=== PATIENT | male | born 1970 | race Caucasian/White ===

== ENCOUNTER 2022-09-07 08:58 | Outpatient (CLI) | payer OTHER, SELFPAY ==
--- NOTE | 2022-09-07 | EST_ITS ---
Patient Info Name: Kimani Dickson Age: 52 years : 1970 Gender: Male Ht: 73 in Wt: 221 lbs BSA: 2.29 m2 HR: 50 bpm BP: 115 / 76 mmHg Heart Rhythm: Sinus Rhythm Exam Date: 09/07/2022 9:55 AM Exam Location: [facility] Patient Status: Outpatient Admit Date: 09/07/2022 Staff Ordering Physician: Peggy, Daphnie Montano NP Attending Provider: PeggyDaphnie NP Exercise Technologist: Denise Teague CT Nurse: alexandra pettit Exam Type: CA stress mela w NM Study Info Indications R07.9 - Chest pain, unspecified A regadenoson stress test was performed. Summary 1. Sinus bradycardia nonspecific T-wave abnormality. 2. No additional ST or T changes noted following Lexiscan injection. 3. Clinically and electrocardiographically uneventful Lexiscan stress test. 4. Myocardial perfusion imaging study to be reported by Radiology. Protocol: Lexiscan Stress ECG Details Stage: REST Duration (min): 0 min : 58 sec HR (bpm): 50 SBP (mmHg): 115 DBP (mmHg): 76 Stage: REST Duration (min): 13 min : 5 sec HR (bpm): 57 SBP (mmHg): 115 DBP (mmHg): 76 Stage: STAGE 1 Duration (min): 1 min : 0 sec HR (bpm): 67 SBP (mmHg): 115 DBP (mmHg): 76 Stage: RECOVERY Duration (min): 1 min : 0 sec HR (bpm): 51 SBP (mmHg): 115 DBP (mmHg): 76 Stage: RECOVERY Duration (min): 2 min : 0 sec HR (bpm): 63 SBP (mmHg): 200 DBP (mmHg): 48 Stage: RECOVERY Duration (min): 3 min : 0 sec HR (bpm): 58 SBP (mmHg): 200 DBP (mmHg): 48 Stage: RECOVERY Duration (min): 4 min : 0 sec HR (bpm): 58 SBP (mmHg): 107 DBP (mmHg): 48 Stage: RECOVERY Duration (min): 5 min : 0 sec HR (bpm): 60 SBP (mmHg): 96 DBP (mmHg): 50 Stage: RECOVERY Duration (min): 5 min : 3 sec HR (bpm): 60 SBP (mmHg): 96 DBP (mmHg): 50 Rest HR: 57 bpm Peak HR: 67 bpm Rest Sys BP: 115 mmHg Peak Sys BP: 200 mmHg Max Pred HR: 170 bpm % Max Pred HR: 39 % Target HR: 145 bpm Max RPP: 13,400 bpm*mmHg Termination Reason: Completed protocol Cardiac Symptoms: Shortness of breath Total Time: 1 min : 0 sec Rest Christine BP: 76 mmHg Peak Christine BP: 48 mmHg Total Dose: 0.4 mg Resting ECG Sinus bradycardia nonspecific T-wave abnormality. Stress ECG No additional ST or T changes noted following Lexiscan injection. Report Signatures
--- NOTE | ~2022-09-07 | NM_ITS ---
EXAMINATION: NM mela stress w perfusion DATE: 09/07/2022 11:12 INDICATION: Atypical chest pain. TECHNIQUE: Rest images were obtained following intravenous administration of 10.4 mCi Tc99m tetrofosm in (Myoview). The patient was infused intravenously with Lexiscan (regadenoson). Then, 33.0 mCi Tc99m tetrofosmin (Myoview) was administered intravenously, and stress images were obtained. Data was frankie nstructed into short axis and horizontal and vertical long axis SPECT images. Gated SPECT images were also obtained. COMPARISON: None. FINDINGS: There is a large, severe, partially reversible perfusion defect involving left ventricular apex, apical septal segment, mid inferoseptal segment, inferior wall, and mid to basal inferolateral wall, consistent with mixed ischemia and infarct. There is no segmental wall motion abnormality. Lef t ventricular ejection fraction measures 50%. IMPRESSION: 1. Large area of severe mixed ischemia and infarct involving left ventricular apex, apical septal seg ment, mid inferoseptal segment, inferior wall, and mid to basal inferolateral wall. I discussed this result with Erika Xiong. 2. Normal left ventricular ejection fraction measuring 50%. Reviewed, dictated and finalized at location A. [facility] [place] IMPRESSION: 1. Large area of severe mixed ischemia and infarct involving left ventricular a pex, apical septal segment, mid inferoseptal segment, inferior wall, and mid to basal inferolateral wall. I discussed this result with Erika Xiong. 2. Normal left ventricular ejection fraction measuring 50%.
== END 2022-09-07 08:59 | disposition home or self-care (01) ==
PROVIDERS: Visit Provider Nurse Practitioner Family
DX: R07.89 Other chest pain (principal)
CPT/HCPCS: 78452; 93017; A9502; J2785

== ENCOUNTER 2022-10-07 13:35 | Outpatient (CLI) | payer OTHER, SELFPAY ==
--- NOTE | 2022-10-07 13:51 | ECHO_ITS ---
Patient Info Name: Kimani Dickson Age: 52 years : 1970 Gender: Male Ht: 74 in Wt: 214 lbs BSA: 2.26 m2 HR: 50 bpm BP: 130 / 80 mmHg Technical Quality: Fair Exam Date: 10/07/2022 2:05 PM Exam Location: [facility] Patient Status: Outpatient Admit Date: 10/07/2022 Staff Ordering Physician: Pako Radford DO Financial Health Counselor: Jamshid Phillips RDCS, RT Attending Provider: Pako Radford DO Referring Physician: Prabhakar TELLEZ; Exam Type: CA echo doppler color flow Study Info Indications I50.9 - Heart failure, unspecified Complete two-dimensional, color flow and Doppler transthoracic echocardiogram is performed. Strain analysis performed. Summary 1. Complete two-dimensional, color flow and Doppler transthoracic echocardiogram is performed. 2. Left ventricular chamber dimension is mildly enlarged. 3. Basal to mid inferoposterior wall is severely hypokinetic. 4. Left ventricular systolic function is moderately reduced, estimated at 35-40%. 5. There is mildly increased left ventricular wall thickness. 6. The left ventricular diastolic function is normal. 7. E/e' 8 is minimally elevated. 8. Global longitudinal strain is mildly abnormal at -16.3%. 9. There is mild aortic valve stenosis based on a peak velocity of 159 cm/s, mean gradient of 6 mmHg, and aortic valve area of 1.8 cm2. 10. The aortic root size at the sinus of Valsalva is moderately dilated at 4.4 cm. Left Ventricle E/e' 8 is minimally elevated. Global longitudinal strain is mildly abnormal at -16.3%. Basal to mid inferoposterior wall is severely hypokinetic. Left ventricular chamber dimension is mildly enlarged. Left ventricular systolic function is moderately reduced, estimated at 35-40%. There is mildly increased left ventricular wall thickness. The left ventricular diastolic function is normal. Right Ventricle Right ventricular systolic function is normal and with normal TAPSE 2.2 cm. Right ventricular chamber dimension is normal. Left Atria Left atrial chamber dimension is normal. Right Atria Right atrial chamber dimension is normal. Aortic Valve The aortic valve is not well visualized. Cannot determine number of aortic valve leaflets. There is mild aortic valve stenosis based on a peak velocity of 159 cm/s, mean gradient of 6 mmHg, and aortic valve area of 1.8 cm2. There is no aortic valve regurgitation. Pulmonic Valve There is no pulmonic regurgitation. Mitral Valve There is no mitral valve stenosis. There is no mitral valve regurgitation. Tricuspid Valve There is no tricuspid valve regurgitation. Pericardium/Pleural There is no pericardial effusion. Inferior Vena Cava Normal inferior vena cava with >50% collapse upon inspiration consistent with normal right atrial pressure, 5 mmHg. Aorta The aortic root size at the sinus of Valsalva is moderately dilated at 4.4 cm. Left Ventricular Outflow Tract Name Value Normal LVOT 2D LVOT Diameter 2.1 cm LVOT Doppler LVOT Peak Gradient 3 mmHg LVOT Mean Gradient 2 mmHg LVOT VTI 21 cm
== END 2022-10-07 13:36 | disposition home or self-care (01) ==
LOC: ANHCARD 13:37
PROVIDERS: PCP Family Medicine; Visit Provider Internal Medicine Cardiovascular Disease
DX: I25.10 Atherosclerotic heart disease of native coronary artery without angina pectoris (principal); R93.1 Abnormal findings on diagnostic imaging of heart and coronary circulation
CPT/HCPCS: 93306

== ENCOUNTER 2022-10-09 11:28 | Observation (INO) | payer OTHER, SELFPAY ==
[2022-10-08 14:28] VITALS: BMI 28.3
[2022-10-09] VITALS (35 sets, daily range): BP systolic 80–142; BP diastolic 51–85; PULSE 41–72; RESP 10–20; TEMP 36.1–37.4; O2SAT 93–100; BMI 28.4
[2022-10-09 09:29] LABS: Basophils Absolute Auto 0.1 K/mm3 (0.0-0.1); Basophils Percent Auto 0.6 % (0.2-1.2); Eosinophils Absolute Auto 0.4 K/mm3 (0-0.3); Hematocrit 48.1 % (42.0-52.0); Hemoglobin 15.7 g/dL (14.0-18.0); Immature Granulocyte Absolute 0.05 K/mm3 (0.00-0.031); Immature Granulocyte Percent A 0.3 % (0-0.5); Lymphocytes Absolute Auto 3.79 K/mm3 (0.9-3.2); Mean Corpuscular HGB Conc 32.6 g/dl (32-36); Mean Corpuscular Hemoglobin 31.3 pg (26-34); Monocytes Absolute Auto 0.9 K/mm3 (0.1-0.6); Monocytes Percent Auto 6.1 % (2.6-8.5); Neutrophils Absolute Auto 9.3 K/mm3 (1.3-6.7); Platelet Count Result 293 k/mm3 (150-375); Red Blood Count 5.01 M/mm3 (4.6-6.20); Red Cell Distribution Width 13.1 % (11.5-14.5); White Blood Count 14.6 K/mm3 (4.5-10.0)
[2022-10-09 09:38] LABS: Anion Gap 5 mmol/L (8-16); Blood Urea Nitrogen 13 mg/dL (9-20); Calcium 8.9 mg/dL (8.4-10.2); Carbon Dioxide 27 mmol/L (22-30); Chloride 105 mmol/L (98-107); Estimated CRCL calculation 126 ml/min; Estimated Glomerular Filt Rate > 60; Glucose 105 mg/dL (65-110); Potassium 3.9 mmol/L (3.4-5.0); Sodium 137 mmol/L (137-145)
--- NOTE | 2022-10-09 10:25 | WPDMODSED ---
Moderate Sedation Note-Pt Data Patient Data Diagnosis: Coronary artery disease with previous MO/PCI Present Complaint: no current complaints abnormal nuclear stress test Procedure to be performed/Plan: left heart catheterization Allergies Allergy/AdvReac Type Severity Reaction Status Date / Time Sulfa (Sulfonamide Allergy Mild SULFA Verified 10/09/22 09:11 Antibiotics) BASED ANTIBIOTIC -N/V PER PT. Home Medications Medication Instructions Recorded Confirmed Type atorvastatin 80 mg tablet 80 mg PO DAILY #30 tabs 09/24/22 10/08/22 Rx cholecalciferol (vitamin D3) 75 75 mcg PO WEEKLY 09/24/22 10/08/22 History mcg (3,000 unit) tablet clopidogrel 75 mg tablet 75 mg PO DAILY #30 tabs 09/24/22 10/08/22 Rx ezetimibe 10 mg tablet 10 mg PO DAILY #30 tabs 09/24/22 10/08/22 Rx icosapent ethyl 1 gram capsule 2 g PO BID #120 caps 09/24/22 10/08/22 Rx (Vascepa) lisinopril 40 mg tablet 40 mg PO DAILY #30 tabs 09/24/22 10/08/22 Rx metoprolol tartrate 25 mg tablet 25 mg PO BID #180 tabs 09/24/22 10/08/22 Rx Current Medications: Active Medications Sodium Chloride (Normal Saline Iv) 500 mls @ 100 mls/hr IV CONT .Q5H APOLLO Sedation/Anesthesia: No previous sedation/anesthesia problems (including family history). [facility] Social History Social History Smoking packs per day: 1 Smoking cigarettes per day: 20.0 Smoking status: Current every day smoker Tobacco type: cigarettes Second hand tobacco smoke exposure: Yes Alcohol intake: never Substance use: never Substance use type: does not use Living arrangements: with family Spiritual care concerns: No Mod Sed Physical Exam Physical Exam Pre Procedural Exam: Normal: Appearance, Throat, Airway, Lungs, Heart Size, Heart Rate, Heart Rhythm, Neuro Exam and Extremities Hours since solid foods: 12 Hours since liquid intake: 12 Mallampati Classification: class II Internal Medicine - PN: Obj Da Vital Signs Vital Signs: Vital Signs - 24 hr 10/09/22 09:19 Temperature 36.4 C L Pulse Rate 52 L Respiratory Rate 14 Blood Pressure 142/84 H Pulse Oximetry 95 Oxygen Delivery Room Air Meds/Results Medications: Active Medications Generic Name Dose Route Start Last Admin Trade Name Les PRN Reason Stop Dose Admin Sodium Chloride 500 mls @ 100 mls/hr 10/09/22 08:30 Normal Saline Iv IV CONT .Q5H APOLLO Labs 10/09/22 09:16 10/09/22 09:16 Labs: Laboratory Results - last 24 hr 10/09/22 10/09/22 09:16 09:16 WBC 14.6 H RBC 5.01 Hgb 15.7 Hct 48.1 MCV 96.0 MCH 31.3 MCHC 32.6 RDW 13.1 Plt Count 293 MPV 10.0 Immature Gran % (Auto) 0.3 Neut % (Auto) 64.0 Lymph % (Auto) 26.0 [place] % (Auto) 6.1 Eos % (Auto) 3.0 Baso % (Auto) 0.6 Lymph # (Auto) 3.79 H [place] # (Auto) 0.9 H Eos # (Auto) 0.4 H Baso # (Auto) 0.1 Abs Immat Gran (auto) 0.05 H Absolute Neuts (auto) 9.3 H Absolute Nucleated RBC 0.0 Nucleated RBC % 0.0 Sodium 137 Potassium 3.9 Chloride 105 Carbon Dioxide 27 Anion Gap 5 L BUN 13 Creatinine 0.70 Estim Creat Clear Calc 126 Estimated GFR > 60 Glucose 105 Calcium 8.9 ASA Classification/Sedation ASA Classification/Sedation ASA Class: II Emergent: No Risks: Risks, benefits and alternatives explained and patient/family accepted plan for sedation. Patient re-evaluated immediately prior to sedation.
--- NOTE | 2022-10-09 11:28 | ECG_ITS ---
Measurements Intervals [place] Rate: 47 P: -1 NH: 163 QRS: -21 QRSD: 116 T: -45 QT: 445 QTc: 397 Interpretive Statements SINUS BRADYCARDIA INTRAVENTRICULAR CONDUCTION DELAY DELAYED PRECORDIAL R/S TRANSITION INFERIOR INFARCT, AGE INDETERMINATE BORDERLINE T WAVE ABNORMALITY- ANTEROLATERAL LEADS BASELINE ARTIFACT- I, II ABNORMAL ECG NO PREVIOUS ECG AVAILABLE FOR COMPARISON Electronically Signed On 10-09-2022 12:06:25 ATHLETE MANAGER by Pako Radford D.O.
--- NOTE | 2022-10-09 11:32 | WPDCARDPROC ---
Cardiac Cath Procedure Note Date of procedure:: 10/09/22 Performing physician:: Ezio Melchor MD Indication:: history of coronary artery disease with previous ME/PCI abnormal nuclear stress test Brief clinical history:: this is a 52-year-old man with history of previous inferior infarction treated approximately 10 years ago at another hospital with PCI. He has been referred for catheterization because of stress testing demonstrating some evidence of nida-infarct ischemia in this segment. He is not reporting any obvious anginal-type chest pain. Procedure Procedure performed:: Left ventriculogram coronary angiogram PTCA to right coronary artery Sedation/Medication given:: fentanyl 50 mg Versed 2 mg case start time 10:40 a.m. case end time 11:22 a.m. sedation provided by Cesilia Solo RN, trained observer Access site:: right femoral artery Estimated blood loss:: 50 cc Procedure note:: patient was brought to the cardiac catheterization lab in the postabsorptive state where the right femoral triangle was prepared and draped in the usual fashion. Anesthesia was provided with 1% lidocaine infiltrated locally. Following this the modified Seldinger technique was used to puncture the femoral artery and placed a 5 Niuean vascular sheath. Left heart catheterization was then carried out using a 5 Niuean angled pigtail catheter to document left-sided hemodynamics and to inject left ventriculography in the 30 degree MCMAHON projection. Following this standard 5 Niuean FL4 catheter was used to engage inject the left coronary artery in multiple projections. A 5 Niuean JR4 catheter was used to engage inject the right coronary artery. Cineangiograms were then reviewed and a piece RCA was recommended and carried out as detailed below. Prior to PCI 5 Niuean sheath was exchanged over a guidewire for a 6 Niuean sheath. The patient was systemically anticoagulated with Angiomax for this intervention. He was taking clopidogrel chronically he was given a loading dose of aspirin as well in the laborer cook house as he has not been taking aspirin. Following intervention the sheath was sutured into position the patient was taken to the holding area for post PCI recovery. Tolerated and uncomplicated there was no evidence of groin hematoma upon leaving the laborer cook house. Findings:: Hemodynamics: Central aortic pressure is 116 over 62 left ventricle 116/5 end-diastolic pressure 16 there is no systolic gradient on pullback across the aortic valve. Left ventricle: The LV is mildly enlarged the posterior segment is akinetic the remainder of the inferior wall is severely hypodynamic the global ejection fraction is about 45% the left main coronary artery is patent. The left anterior descending is a moderate caliber artery proximally and is nicely patent there is mild calcium in the proximal LAD. A very large bifurcating diagonal branch then takes his origin which looks normal. Distal to this very large diagonal branch the LAD itself is angiographically very small but without significant disease. The large diagonal branch is also free of significant disease. The circumflex is a moderate caliber artery giving rise to the marginal branches the circumflex has minimal luminal irregularity but no significant atherosclerotic Stenosis. The right coronary artery is dominant to the posterior circulation it is very large in caliber and has stent material from the proximal segment down to the 3rd portion of the artery. In the 2nd portion of the right coronary artery in the middle of the stented area there is a severe area of 99% in stent restenosis. The area of InStent restenoses is relatively long more than 20 mm of the segment. There is mild left to right collateral filling seen of the RPDA on left coronary injection. The PDA and PL branches are free of significant disease. Intervention: The right coronary artery was engaged using a 6 Niuean JR4
[2022-10-09] MEDS: ACETAMINOPHEN 325 MG TABLET 650 MG PO (12:53)
[2022-10-09] MEDS: SODIUM CHLORIDE 0.9% IV 1,000 ML 125 ML IV CONT (13:52)
--- NOTE | 2022-10-09 15:44 | SUR.PHASEII ---
END PHASE II RECOVERY AT THIS TIME AND CONTINUE CARE UNDER PCS IMU OBS STATUS AFTER LHC W/ PCI. PT. REMAINS IN GUM WORKER 7 OBS STATUS IMU OVERFLOW. SEE PCS FOR FURTHER DOCUMENTATION.
--- NOTE | 2022-10-09 15:45 | ADMGEN ---
This patient, Kimani Dickson, was admitted to IMU Room 212-01. Patient/family oriented to hospital policies and general routines including ID bracelet, bed and alarms, visiting hours, pain management, procedures, bathroom and other care routines, personal items, smoking policy, room service/diet, and visiting hours. Information on how to activate the Rapid Response Team has been discussed. Patient/Family are encouraged to report perceived risks to care and to ask questions if they do not understand what they are told or what they should do.
--- NOTE | 2022-10-09 15:45 | ADMGEN ---
This patient, Kimani Dickson, was admitted to IMU OBS STATUS POST PHASE II RECOVERY AFTER C W/ PCI BY DR. TRIPP. REMAINS IN DESK CLERK 7 AT THIS TIME. SEE PHASE II FOR PREVIOUS DOCUMENTATION. HEMOSTASIS R. GROIN PUNCTURE SITE 1443. BEDREST X 6 HOURS POST HEMOSTASIS UNTIL 2043. REVIEWED BEDREST ACTIVITY RESTRICTIONS W/ PT AND . BOTH HAVE V/U OF ALL. IVF'S RUNNING ORDERED. VSS. WILL CONTINUE TO MONITOR. Patient/family oriented to hospital policies and general routines including ID bracelet, bed and alarms, visiting hours, pain management, procedures, bathroom and other care routines, personal items, smoking policy, room service/diet, and visiting hours. Information on how to activate the Rapid Response Team has been discussed. Patient/Family are encouraged to report perceived risks to care and to ask questions if they do not understand what they are told or what they should do.
[2022-10-09] MEDS: IBUPROFEN 400 MG TABLET 800 MG PO (16:01)
--- NOTE | 2022-10-09 18:00 | PC.NURSE ---
PT HAS ATTEMPTED TO USE URINAL SEVERAL TIMES WITHOUT SUCCESS. HAVE OFFERED PT. PLACEMENT OF URINE LANE CATHETER NUMEROUS TIMES TO MANAGE URINE OUTPUT UNTIL BEDREST COMPLETE. PT. HAS REFUSED PLACEMENT OF LANE EACH TIME OFFERED BY THIS RN. I ONLY PEE TWICE A DAY AT HOME AND I DRINK A LOT. I WILL PEE WHEN MY BEDREST IS DONE. PT. ALSO HAS ONGOING FRONTAL HEADACHE THAT IS ACHY, DULL AND THROBBING DESPITE IVF'S, TYLENOL, IBUPROFEN, ICE PACK TO HEAD, DARK ROOM, LOW STIMULI, CAFFEINE CONTAINING DRINK AND MEAL. HAS HAD SOME RELIEF WITH THESE INTERVENTIONS, BUT STATES, I DRINK 18 CANS OF [place]W A DAY IS TO BRING PT. IN A FEW CANS OF MOUNTAIN DEW.
--- NOTE | 2022-10-09 18:47 | PC.NURSE ---
Called and spoke with receiving nurse Vj on IMU. He got SBAR and asked that we bring the patient to do bedside report.
--- NOTE | 2022-10-09 19:05 | PC.NURSE ---
PT. TRANSFERRED TO IMU 212 VIA BED ON TRANSPORT MONITOR FOR DURATION OF STAY POST [facility] W/ PCI. AT SIDE. ALL PERSONAL BELONGINGS SENT W/ PT. BEDSIDE REPORT GIVEN TO KAYCEE JULIAN PER HIS REQUEST. TELE MONITOR APPLIED. R. GROIN SITE UNCHANGED. DRESSING C/D/I. SITE SOFT, NONTENDER; NO BLEEDING OR HEMATOMA NOTED.
[2022-10-09] MEDS: METOPROLOL TARTRATE 25 MG TABLET PO (20:28)
[2022-10-10] VITALS (9 sets, daily range): BP systolic 103–115; BP diastolic 61–62; PULSE 46–105; RESP 20–22; TEMP 36.1–36.4; O2SAT 94–98
--- NOTE | 2022-10-10 05:11 | ECG_ITS ---
Measurements Intervals [place] Rate: 52 P: -5 AR: 167 QRS: -21 QRSD: 124 T: -31 QT: 436 QTc: 408 Interpretive Statements SINUS BRADYCARDIA INTRAVENTRICULAR CONDUCTION DELAY INFERIOR INFARCT, AGE INDETERMINATE BORDERLINE ST-T WAVE ABNORMALITY- LATERAL LEADS ABNORMAL ECG COMPARED TO ECG 10/09/2022 11:46:51 NO SIGNIFICANT CHANGES Electronically Signed On 10-10-2022 10:08:38 ADULT PROTECTIVE CASEWORKER by Pako Radford D.O.
[2022-10-10] MEDS: EZETIMIBE 10 MG TABLET PO (08:41)
[2022-10-10] MEDS: ASPIRIN 81 MG CHEWABLE TABLET PO (08:41)
[2022-10-10] MEDS: ATORVASTATIN 40 MG TABLET 80 MG PO (08:41)
[2022-10-10] MEDS: CLOPIDOGREL BISULFATE 75 MG TABLET PO (08:41)
[2022-10-10] MEDS: METOPROLOL TARTRATE 25 MG TABLET PO (08:42)
[2022-10-10] MEDS: lisinopriL 20 MG TABLET 40 MG PO (08:42)
[2022-10-10] MEDS: ACETAMINOPHEN 325 MG TABLET 1300 MG PO (10:28)
--- NOTE | 2022-10-10 10:38 | PM.PNCARD ---
Progress Note: A&P Assessment and Plan (1) CAD (coronary artery disease): Code(s): I25.10 - Atherosclerotic heart disease of [place] coronary artery without angina pectoris Status: Acute Assessment and Plan: Stable overnight status post balloon angioplasty to 99% InStent restenosis previously placed RCA stent with excellent result and without complication. Continue dual antiplatelet therapy without interruption including aspirin and clopidogrel. Continue statin, beta-kellen, lisinopril. No complications noted observation overnight. Telemetry without significant ventricular arrhythmias, prolonged pauses or high-grade AV blocks. Post cardiac catheterization / intervention precautions reviewed with the patient and his in detail. All questions answered to their satisfaction. Patient stable for discharge home to follow up with Dr. Radford within 1 month or as directed. advised patient he must not missed a single dose of aspirin or clopidogrel for any of his medications to reduce risk for acute myocardial infarction due to arterial thrombosis which may be life-threatening and or potentially fatal. He understands importance of compliance. (2) Hypertension: Code(s): I10 - Essential (primary) hypertension Status: Acute Assessment and Plan: BP stable. Continue current medical therapy. (3) Dyslipidemia: Code(s): E78.5 - Hyperlipidemia, unspecified Status: Acute Assessment and Plan: Continue atorvastatin 80 mg at bedtime, Zetia 10 mg daily goal LDL less than 70. PCSK9 inhibitor therapy warranted if lipids remain suboptimally controlled on maximally tolerated statin. Defer to Dr. Radford as an outpatient as clinically relevant. (4) Tobacco abuse: Code(s): Z72.0 - Tobacco use Status: Acute Assessment and Plan: smoking cessation critically important. (5) S/P angioplasty: Code(s): Z98.62 - Peripheral vascular angioplasty status Status: Acute Assessment and Plan: Status post balloon angioplasty to 99% InStent restenoses previously placed stent in the RCA. Subjective Date/time seen: Date of service:10/10/22 10:38 Follow-up post PCI to RCA patient complained of headache but no chest pain, shortness of breath, dizziness or palpitations. No new issues overnight. No bleeding. Right groin arterial access site without significant tenderness, hematoma daily or swelling. No fevers. Patient feels well otherwise and would like to be discharged home. No nausea, imbalance, focal weakness, vision changes. Review of Systems Review of Systems: Remainder of the review of systems is otherwise negative aside from that noted in the HPI. All systems reviewed & are unremarkable except as noted in HPI and below Constitutional: Constitutional: Reports as per HPI and Reports no additional constitutional complaints Eyes: Eyes: Reports as per HPI and Reports no additional eye complaints ENT: Reports system reviewed and no additional complaints, except as documented and Reports as per HPI Cardiovascular: Cardiovascular: Reports as per HPI and Reports no additional cardiovascular complaints Respiratory: Respiratory: Reports as per HPI and Reports no additional respiratory complaints Gastrointestinal: Gastrointestinal: Reports as per HPI and Reports no additional gastrointestinal complaints Genitourinary: Genitourinary: Reports no additional male genitourinary complaints and Reports as per HPI Musculoskeletal: Musculoskeletal: Reports no additional musculoskeletal complaints and Reports as per HPI Integumentary/Breasts: Skin/Breast: Reports system reviewed and no additional complaints, except as docu and Reports as per HPI Neurologic: Reports system reviewed and no additional complaints, except as documented and Reports as per HPI Psychiatric: Psychiatric: Reports no additional psychiatric complaints and Reports as per HPI Endocrine: Endocrine: Re
--- NOTE | 2022-10-10 10:50 | PM.DS ---
DS: Admitting Diagnosis Discharge Date 10/10/2022 Admitting Diagnosis Stable Angina Abnormal stress test CAD Hypertension Hyperlipidemia Tobacco abuse DS: Discharge Diagnosis Discharge Diagnosis (1) S/P angioplasty: Code(s): Z98.62 - Peripheral vascular angioplasty status Status: Acute Assessment and Plan: Status post balloon angioplasty to 99% InStent restenoses previously placed stent in the RCA. (2) CAD (coronary artery disease): Code(s): I25.10 - Atherosclerotic heart disease of [place] [facility] [place] coronary artery without angina pectoris Status: Acute Assessment and Plan: Stable overnight status post balloon angioplasty to 99% InStent restenosis previously placed RCA stent with excellent result and without complication. Continue dual antiplatelet therapy without interruption including aspirin and clopidogrel. Continue statin, beta-kellen, lisinopril. No complications noted observation overnight. Telemetry without significant ventricular arrhythmias, prolonged pauses or high-grade AV blocks. Post cardiac catheterization / intervention precautions reviewed with the patient and his in detail. All questions answered to their satisfaction. Patient stable for discharge home to follow up with Dr. Radford within 1 month or as directed. advised patient he must not missed a single dose of aspirin or clopidogrel for any of his medications to reduce risk for acute myocardial infarction due to arterial thrombosis which may be life-threatening and or potentially fatal. He understands importance of compliance. (3) Dyslipidemia: Code(s): E78.5 - Hyperlipidemia, unspecified Status: Acute Assessment and Plan: Continue atorvastatin 80 mg at bedtime, Zetia 10 mg daily goal LDL less than 70. PCSK9 inhibitor therapy warranted if lipids remain suboptimally controlled on maximally tolerated statin. Defer to Dr. Radford as an outpatient as clinically relevant. (4) Hypertension: Code(s): I10 - Essential (primary) hypertension Status: Acute Assessment and Plan: BP stable. Continue current medical therapy. (5) Tobacco abuse: Code(s): Z72.0 - Tobacco use Status: Acute Assessment and Plan: smoking cessation critically important. DS: Summary Hospital Course Reason for hospitalization: outpatient coronary angiography Hospital Course: patient was admitted as an outpatient as recommended by Dr. Radford make diagnostic and therapeutic angiography performed by Dr. Ezio Melchor 10/09/2022 or patient underwent successful balloon angioplasty to 99% InStent restenosis previously placed stent in the RCA. Patient was observed overnight without complication. No arterial access complications noted. Patient without recurrent angina and was hemodynamically stable. Patient discharged stable and improved condition to follow up with Dr. Radford. he was counseled not to miss any of his medications and in particular aspirin or Plavix so it is not increased risk for arterial thrombosis, myocardial function and or potentially . Status at Discharge Cognitive/behavioral status at discharge: Competent Functional status at discharge: independent ambulation Overall status at discharge: patient is back to baseline Time Spent with Patient Time attestation: Total time spent providing and/or coordinating discharge services: 35 Time spent: Greater than 30 minutes Exam Narrative: General: Well developed, alert and oriented x3. No apparent distress, comfortable, pleasant, and cooperative. Head: atraumatic, normocephalic Eyes: EOM intact, sclerae anicteric, conjunctivae unremarkable Ears/Nose: external inspection of ears and nose were grossly normal Mouth/Throat: oral mucosa pink and moist Neck: supple, normal range of motion, no jugular venous distention or carotid bruits, thyroid nonpalpable, trachea midline. Cardiac: Regular rate and rhythm, normal S
== END 2022-10-10 11:25 | disposition home or self-care (01) ==
LOC: ANHCPC 17:20 → ANHIMU 21:10 → ANHCPC 10-13 12:59 → ANHIMU 10-13 12:59
PROVIDERS: Admitting Provider Specialist; PCP Family Medicine; Visit Provider Internal Medicine Cardiovascular Disease
PROC: 4A023N7 Measurement of Cardiac Sampling and Pressure, Left Heart, Percutaneous Approach (ICD-10-PCS; CPT 93452; principal; 2022-10-09 10:00)
PROC: 02703ZZ Dilation of Coronary Artery, One Artery, Percutaneous Approach (ICD-10-PCS; CPT 92920; 2022-10-09 10:00)
DX: I25.10 Atherosclerotic heart disease of native coronary artery without angina pectoris (principal); T82.855A Stenosis of coronary artery stent, initial encounter; R94.39 Abnormal result of other cardiovascular function study; I10 Essential (primary) hypertension; E78.5 Hyperlipidemia, unspecified; R94.31 Abnormal electrocardiogram [ECG] [EKG]; I25.2 Old myocardial infarction; F17.210 Nicotine dependence, cigarettes, uncomplicated; Z79.899 Other long term (current) drug therapy; Z79.02 Long term (current) use of antithrombotics/antiplatelets; Y83.8 Other surgical procedures as the cause of abnormal reaction of the patient, or of later complication, without mention of misadventure at the time of the procedure
CPT/HCPCS: 36415; 80048; 85025; 92920; 93005; 93458; A9270; C1725; C1769; C1887; C1894; G0378; G0379; J0461; J0583; J1265; J1644; J2250; J3010; J7030; J7040

== ENCOUNTER 2023-01-02 22:38 | Emergency (ER) | payer OTHER, SELFPAY ==
[2023-01-02] VITALS (8 sets, daily range): BP systolic 123–163; BP diastolic 75–93; PULSE 57–64; RESP 10–18; TEMP 36.4; O2SAT 93–98
--- NOTE | ~2023-01-02 | XR_ITS ---
EXAMINATION: XR chest 2V DATE: 01/02/2023 23:09 INDICATION: Substernal chest pain TECHNIQUE: PA and lateral views of the chest are obtained. COMPARISON: None available FINDINGS: There are minimal airspace opacities of the lung bases. No pleural effusion or pneumothorax . The cardiomediastinal silhouette is normal. The visualized bones and soft tissues are unremarkable. IMPRESSION: 1. Minimal airspace opacities of the lung bases, consistent with atelectasis versus pneumonia. Reviewed, dictated and finalized at location A. IMPRESSION: 1. Minimal airspace opacities of the lung bases, consistent with atelectasis ve rsus pneumonia.
--- NOTE | 2023-01-02 22:39 | ECG_ITS ---
Measurements Intervals [place] Rate: 57 P: 14 KS: 153 QRS: -18 QRSD: 122 T: 4 QT: 404 QTc: 396 Interpretive Statements SINUS BRADYCARDIA MODERATE INTRAVENTRICULAR CONDUCTION DELAY [110+ ms QRS DURATION] COMPARED TO ECG 10/10/2022 08:58:09 NO SIGNIFICANT CHANGES Electronically Signed On 01-03-2023 9:18:48 CDT by Mar Villalobos M.D.
--- NOTE | 2023-01-02 23:07 | ED.GENADULT ---
HPI - General Adult General Chief complaint: Chest Pain Stated complaint: chest pain Time Seen by Provider: 01/02/23 22:46 History of Present Illness HPI narrative: Patient is a 52-year-old gentleman who presents the emergency department with chief complaint of chest pain. Patient reports that he has prior history of cardiac disease and has had multiple stents and has had a balloon angioplasty. Patient reports his last procedure was in September and reports that this evening he started having discomfort that went across his chest patient states it was in the epigastric region and in the low chest. The patient reports that he did not get short of breath denies diaphoresis denies radiation to his arm or neck. Patient does report this feels different from his previous heart attacks. Related Data Home Medications Medication Instructions Recorded Confirmed cholecalciferol (vitamin D3) 75 75 mcg PO WEEKLY 09/24/22 10/28/22 mcg (3,000 unit) tablet Allergies Allergy/AdvReac Type Severity Reaction Status Date / Time Sulfa (Sulfonamide Allergy Mild SULFA Verified 01/02/23 22:40 Antibiotics) BASED ANTIBIOTIC -N/V PER PT. morphine AdvReac Unknown Unknown Verified 01/02/23 22:40 Review of Systems Review of Systems: A 10 system review of systems was completed on the patient and is negative except for what is stated in the HPI. Nursing and ancillary documentation was reviewed. [facility], [facility] Social History Social History Smoking packs per day: 1 Smoking cigarettes per day: 20.0 Years smoked: 32 Smoking pack-years: 32.00 Smoking status: Current every day smoker Tobacco type: cigarettes Second hand tobacco smoke exposure: Yes Alcohol intake: never Substance use: never Substance use type: does not use Lack of Transportation: No Lack of Food: Never True Current Housing: I Have Housing Concerned About Future Housing: No Difficulty Paying Gas/Electric Bills: No Difficulty Paying for Meds: No Currently Unemployed: No Education: High School Diploma/GED Difficulty w/ Childcare or Family Care: No Living arrangements: with family Spiritual care concerns: No Exam Narrative: GENERAL: Well-appearing, well-nourished, and in no acute distress. HEAD: Normocephalic, atraumatic. EYES: PERRLA and EOMI. ENT: Nares clear, no rhinorrhea or epistaxis. Mucous membranes moist. NECK: Supple. CHEST: Clear to auscultation. No respiratory distress. HEART: Regular rate and rhythm. No murmur heard. Normal peripheral pulses. ABDOMEN: Soft, nontender, nondistended, normal active bowel sounds. EXTREMITIES: Normal range of motion. No edema. SKIN: Warm, dry, no rash. NEURO: No focal deficits. Alert and oriented x3. PSYCH: Normal mood and affect. Course Vital Signs Vital signs: Vital Signs Temperature 36.4 C L 01/02/23 22:40 Pulse Rate 64 01/02/23 22:40 Respiratory Rate 16 01/02/23 22:40 Blood Pressure 163/93 H 01/02/23 22:40 Pulse Oximetry 97 01/02/23 22:40 Oxygen Delivery Room Air 01/02/23 22:40 Temperature 36.4 C L 01/02/23 22:40 Pulse Rate 54 L 01/03/23 00:47 Respiratory Rate 16 01/03/23 00:47 Blood Pressure 119/68 01/03/23 00:47 Pulse Oximetry 96 01/03/23 00:47 Oxygen Delivery Room Air 01/02/23 22:45 Medical Decision Making [facility] Narrative Medical decision making narrative: Differential diagnosis includes ACS, atypical chest pain, EKG was obtained which showed sinus bradycardia rate of [address] elevation or ST depression Laboratory studies were obtained which showed a troponin of less than 0.012 CBC was within normal limits. Laboratory was having technical difficulties with the CMP and lipase the patient opted for no further blood draws at this time and reports that changes initial troponin is negative he would like outpatient treatment. The patient did understand risk of possibly
[2023-01-02 23:27] LABS: Basophils Absolute Auto 0.1 K/mm3 (0.0-0.1); Basophils Percent Auto 0.6 % (0.2-1.2); Eosinophils Absolute Auto 0.4 K/mm3 (0-0.3); Eosinophils Percent Auto 3.4 % (0-4.4); Hematocrit 46.6 % (42.0-52.0); Hemoglobin 15.8 g/dL (14.0-18.0); Immature Granulocyte Absolute 0.03 K/mm3 (0.00-0.031); Immature Granulocyte Percent A 0.2 % (0-0.5); Lymphocytes Absolute Auto 4.99 K/mm3 (0.9-3.2); Mean Corpuscular HGB Conc 33.9 g/dl (32-36); Mean Corpuscular Hemoglobin 32.4 pg (26-34); Mean Corpuscular Volume 95.7 fl (80-100); Mean Platelet Volume 10.9 fl (7.4-10.4); Monocytes Percent Auto 8.3 % (2.6-8.5); Neutrophils Absolute Auto 5.7 K/mm3 (1.3-6.7); Neutrophils Percent Auto 46.5 % (45.5-73.1); Platelet Count Result 288 k/mm3 (150-375); Red Blood Count 4.87 M/mm3 (4.6-6.20); Red Cell Distribution Width 13.2 % (11.5-14.5); White Blood Count 12.2 K/mm3 (4.5-10.0)
[2023-01-02 23:39] LABS: INR 0.9; Prothrombin Time 11.6 Seconds (11.1-14.7)
[2023-01-02 23:40] LABS: Partial Thromboplastin Time 28.7 SECONDS (22.3-36.8)
[2023-01-03] VITALS (12 sets, daily range): BP systolic 110–119; BP diastolic 68–76; PULSE 53–59; RESP 9–22; O2SAT 94–97
--- NOTE | 2023-01-03 01:11 | PC.NURSE ---
Green redraw tube sent to laboratory.
[2023-01-03 01:37] LABS: Troponin I < 0.012 ng/mL (0.000-0.034)
[2023-01-03 01:55] LABS: Alanine Aminotransferase 18 U/L (6-50); Albumin Level 4.2 g/dL (3.5-5.1); Alkaline Phosphatase 66 U/L (38-126); Anion Gap 6 mmol/L (8-16); Aspartate Amino Transferase 24 U/L (17-59); Bilirubin,Total 0.5 mg/dL (0.2-1.3); Blood Urea Nitrogen 10 mg/dL (9-20); Calcium 8.7 mg/dL (8.4-10.2); Carbon Dioxide 27 mmol/L (22-30); Chloride 103 mmol/L (98-107); Estimated CRCL calculation 110 ml/min; Estimated Glomerular Filt Rate > 60; Glucose 101 mg/dL (65-110); Lipase 90 U/L (23-300); Sodium 136 mmol/L (137-145)
== END 2023-01-03 01:58 | disposition home or self-care (01) ==
PROVIDERS: Emergency Provider Emergency Medicine; PCP Family Medicine
DX: R07.9 Chest pain, unspecified (principal); I51.9 Heart disease, unspecified; F17.210 Nicotine dependence, cigarettes, uncomplicated; Z95.5 Presence of coronary angioplasty implant and graft
CPT/HCPCS: 36415; 71046; 80053; 83690; 84484; 85025; 85610; 85730; 93005; 99284

== ENCOUNTER 2023-09-27 13:23 | Outpatient (CLI) | payer OTHER, SELFPAY ==
--- NOTE | ~2023-09-27 | CT_ITS ---
EXAMINATION: CTA chest abdomen DATE: 09/27/2023 13:51 INDICATION: Abdominal aortic aneurysm TECHNIQUE: Computed tomographic angiography (CTA) of the chest and abdomen was performed without and with 100 mL Omnipaque-350 intravenous contrast. Volume-rendered 3D-reconstructions of the aorta and l arge arteries were constructed by the technologist on a separate workstation. Automated exposure cont rol and iterative reconstruction technique were employed. The dose-length product was 897.03 mGy-cm. COMPARISON: None FINDINGS: Chest: Mild emphysema. 1 cm part solid nodule in the left lower lobe. Mild dependent atelectasis in the bila teral lower lobes. No pneumonia, pulmonary edema or pleural effusion. Heart size is normal. Atheroscl erotic coronary artery calcification versus stenting along the right coronary artery. No pericardial effusion. 4.9 x 4.6 cm ascending thoracic aortic aneurysm. The aorta tapers to normal caliber by the takeoff of the 3.7 x 3.5 cm at the level of the takeoff of the innominate artery. The more distal tho racic aorta is normal in caliber. No dissection. Calcified left hilar lymph nodes consistent with old granulomatous disease. No pathologically enlarged abdominal or pelvic lymphadenopathy. Mild lower th oracic spondylosis. Abdomen: Liver, gallbladder, spleen, pancreas, bilateral adrenal glands and left kidney are normal. 4.2 cm rig ht renal cyst. Surgical clips and suture lines abdomen near the cecum consistent with prior appendect crescencio. Visualized portion of the bowels are otherwise unremarkable with no obstruction. No pathological ly enlarged abdominal or upper pelvic lymphadenopathy. Normal caliber abdominal aorta with small amou nt nonhemodynamically significant atherosclerotic ossicle is . No dissection. There is a normal varia nt separate origin of the right gastric artery directly off the aorta. Mild to moderate lumbar facet osteoarthritis most prominent on the right at L3-L4. IMPRESSION: 1. 4.9 x 4.6 cm ascending thoracic aortic aneurysm. 2. Mild emphysema with indeterminate 1 cm subselected left lower lobe nodule. Recommend 3-6 month fol low-up low-dose noncontrast chest CT Reviewed, dictated and finalized at location A. INAL MAKE UP OPERATOR IMPRESSION: 1. 4.9 x 4.6 cm ascending thoracic aortic aneurysm. 2. Mild emphysema with indeterminate 1 cm subselected left lower lobe nodule. R ecommend 3-6 month follow-up low-dose noncontrast chest CT
[2023-09-27 13:47] LABS: Estimated Glomerular Filt Rate > 60
== END 2023-09-27 13:24 | disposition home or self-care (01) ==
PROVIDERS: PCP Family Medicine; Visit Provider Specialist
DX: I71.21 Aneurysm of the ascending aorta, without rupture (principal); J43.9 Emphysema, unspecified
CPT/HCPCS: 71275; 74175; Q9967

== ENCOUNTER 2025-05-14 08:03 | Outpatient (CLI) | payer OTHER, SELFPAY ==
--- NOTE | ~2025-05-14 | CT_ITS ---
EXAMINATION: CTA chest DATE: 05/14/2025 08:37 INDICATION: Aneurysm of the ascending aorta TECHNIQUE: Computed tomography (CT) of the chest was performed without intravenous contrast. The dose-length product was 622.15 mGy-cm. COMPARISON: CTA chest and abdomen 09/27/2023 FINDINGS: Grossly stable 4.9 x 4.6 cm ascending thoracic aortic aneurysm. Mild atherosclerotic disease in the thoracic aorta. There are a few nonenlarged borderline enlarged mediastinal and hilar lymph nodes which are grossly unchanged. Heart is mildly enlarged, unchanged. There are coronary artery calcifications.Tracheobronchial tree is patent. No pneumothorax. No pleural effusion. No focal pulmonary consolidation. No pulmon kolton mass. Mild centrilobular emphysema, unchanged. The previously described 1 cm subpleural nodule in the left lower lobe is no longer identified. Mild dependent atelectasis. Mild multilevel degenerative change in the visualized spine. IMPRESSION: 1. Grossly stable ascending thoracic aortic aneurysm. 2. The previously described 1 cm subpleural nodule in the left lower lobe is no longer identified. Reviewed, dictated and finalized at location Q.
--- OUTSIDE RECORDS SUMMARY | 2025-05-14 08:08 | XMS_ITS | Clinical Summary ---
Author Organization [facility] Address [address] [place] [id number] Care Team Providers Care Agricultural Production Engineer Name Role Phone Ed Arguelles MD Primary Care Provider [phone] Allergies Active Allergy Reactions Criticality Noted Date Comments Morphine Stomach upset,Hypotension High 11/21/2014 Medications lisinopriL (PRINIVIL,ZESTRI L) 40 mg tablet Take 1 tablet (40 mg total) by mouth daily Active atorvastatin (LIPITOR) 40 mg tablet 05/03/2023 Active clopidogreL (PLAVIX) 75 mg tablet Take 1 tablet (75 mg total) by mouth daily 02/27/2021 Active aspirin 81 mg enteric coated tablet Take 1 tablet (81 mg total) by mouth daily 02/05/2015 Active ezetimibe (ZETIA) 10 mg tablet Take 1 tablet (10 mg total) by mouth daily Active gemfibroziL (LOPID) 600 mg tablet Take 1 tablet (600 mg total) by mouth 2 (two) times a day 10/16/2023 Active metoprolol XL (TOPROL-XL) 25 mg extended release tablet Take 1 tablet (25 mg total) by mouth daily 90 tablet 3 10/21/2023 Active Active Problems Problem Noted Date Diagnosed Date Stenosis of coronary artery stent 06/10/2023 Aneurysm of ascending aorta without rupture 05/22 Encounters Date Type Department Care Team Description 05/01/2025 Telephone [facility] Cardiology [address] [place] [address] Ezio Melchor MD from Last 3 Months Surgical History Surgery Date Site/Laterality Comments APPENDECTOMY Medical History Medical History Date Comments Hypertension Heart attack (HCC) H/O angioplasty Hyperlipidemia Family History Relation Name Status Comments Father (Age 66) Social History Tobacco Use Types Packs/Day Years Used Date Smoking Tobacco: Every Day Cigarettes Tobacco Cessation:Ready to Q uit: Not Asked; Counseling Given: Not Answered Comments:Starting patches today to quit AUDIT-C Answer Date Recorded Q1: How often do you have a drink containing alcohol? Never 05/10/2023 Q2: How many drinks containi ng alcohol do you have on a typical day when you are drinking? Patient does not drink Q3: How often do you have si x or more drinks on one occasion? Never 05/10/2023 Sex and Gender Information Value Date Recorded Sex Assigned at Not on file Legal Sex Male 1:35 PM CDT Gender Identity Not on file Sexual Orientation Not on file Obstetrics History Last Filed Vital Signs Vital Sign Reading Time Taken Comments Blood Pressure 106/72 11/16/2024 8:01 AM TRAY SETTER Pulse 69 11/16/2024 8:01 AM TRAY SETTER Temperature - - Respiratory Rate - - Oxygen Saturation 97% 11/16/2024 8:01 AM TRAY SETTER Inhaled Oxygen Concentration - - Weight 102.3 kg (225 lb 9.6 oz) 11/16/2024 8:01 AM TRAY SETTER Height 185.4 cm (6' 1) 11/16/2024 8:01 AM TRAY SETTER Body Mass Index 29.76 11/16/2024 8:01 AM TRAY SETTER Plan of Treatment Health Maintenance Due Date Last Done Comments Colon Cancer Screening-Colonoscopy 1972 Depression Screening 1972 Hepatitis C Screening 1972 Prostate Cancer Screening-PSA 1972 DTaP/Tdap/Td Vaccine (1 - Tdap) 1983 Hepatitis B Screening 1990 Regular Well Visit/Exam 18-64 1990 Pneumococcal vaccine <65 (1 of 2 - PCV) 1991 Zoster Vaccine (1 of 2) 2022 Covid-19 Vaccine (2 - 2023- season) 2024 Influenza Vaccine (#1) 2025 Insurance [facility] Member Subscriber Plan / Payer ( fective 2022-Present) Name:Kimani Dickson Relation to Subscriber:Self Name:Kimani Dickson Payer ID:[id number] (NAIC) Group ID:[id number] Type:MEDICAID RISK OTHER Address: ATTN: CLAIMS DEPT [address] [facility] [place] [id number] Care Teams Agricultural Production Engineer Relationship Specialty Start Date End Date Ed Arguelles MD PCP - General Family Medicine 05/03/18
--- OUTSIDE RECORDS SUMMARY | 2025-05-14 08:08 | XMS_ITS | Clinical Summary ---
Author Organization [facility] Address [address] [place] [address] Care Team Providers Care Water Team Leader Name Role Phone Valdo Giang MD Primary Care Provider [phone] Allergies Active Allergy Reactions Criticality Noted Date Comments Morphine GI Upset 12/06/2020 Sulfa Antibiotics Hives 12/06/2020 Medications nitroglycerin 0.4 MG SL tablet DISSOLVE 1 TABLET UNDER THE TONGUE NEEDED FOR CHEST PAIN AND REPEAT EVERY 5 MINUTES UP TO 3 TIMES. CALL 911 IF NO IMPROVEMENT 1 Active metoprolol tartrate 25 MG tablet Take 25 mg by mouth 2 (two) times daily. 1 Active lisinopril 40 MG tablet Take 40 mg by mouth daily. 1 Active clopidogrel 75 MG tablet Take 75 mg by mouth daily. 1 Active atorvastatin 80 MG tablet Take 80 mg by mouth daily. 1 Active aspirin EC (ALBERT LOW DOSE) 81 MG tablet Take 1 tablet by mouth daily. 5 Active ALPRAZolam 0.25 MG tablet alprazolam tablet 0.25 mg; take 1 tablet by mouth three times a day; 0; -Jan-2015; Active 5 Active Active Problems No known active problems Social History Tobacco Use Types Packs/Day Years Used Date Smoking Tobacco: Smoker, Current Status Unknown Smokeless Tobacco: Never Sex and Gender Information Value Date Recorded Sex Assigned at Not on file Legal Sex Male 5:59 PM CDT Gender Identity Not on file Sexual Orientation Not on file Last Filed Vital Signs Vital Sign Reading Time Taken Comments Blood Pressure 147/85 03/21/2021 11:00 PM CDT Pulse 60 03/21/2021 10:57 PM CDT Temperature 36.2 C (97.2 F) 03/21/2021 10:57 PM CDT Respiratory Rate 18 03/21/2021 10:57 PM CDT Oxygen Saturation 98% 03/21/2021 11:30 PM CDT Inhaled Oxygen Concentration - - Weight 95 kg (209 lb 7 oz) 03/21/2021 10:57 PM C DT Height 188 cm (6' 2) 03/21/2021 10:57 PM CDT Body Mass Index 26.89 03/21/2021 10:57 PM CDT Plan of Treatment Health Maintenance Due Date Last Done Comments Colorectal Cancer Screening Colonoscopy (10 Years) 1972 Annual Physical 1975 Hepatitis C 1990 DTaP, Tdap and Td Vaccines ( 1 - Tdap) 1991 Hepatitis B Vaccines (1 of 3 - 19+ 3-dose series) 1991 Pneumococcal Vaccine: 50+ Ye ars (1 of 2 - PCV) 1991 Zoster Vaccines (1 of 2) 2022 COVID-19 Vaccine (2 - 2023-2 5 season) 2024 12/06/2020 Meningococcal B Vaccine Aged Out No l onger eligible based on patient's age to complete this topic Meningococcal Vaccine Aged Out No sidney kayla eligible based on patient's age to complete this topic RSV Immunizations Under 20 Months Aged Out No longer eligible based on patient's age to complete this topic Insurance Care Teams Water Team Leader Relationship Specialty Start Date End Date Valdo Giang MD [address] [place] [id number] PCP - General FAMILY PRACTICE 12/06/20
--- OUTSIDE RECORDS SUMMARY | 2025-05-14 08:08 | XMS_ITS | Encounter Summary ---
Author Organization [facility] Address [address] [place] [address] Care Team Providers Care Groundman Name Role Phone Valdo Giang MD Primary Care Provider [phone] Encounter Details Date Type Department Care Team (Late st Contact Info) Description 02/25/2019 Abstract [facility] CONVERSION [address] [place] [id number] , Generic Conversion, Social History Tobacco Use Types Packs/Day Years Used Date Smoking Tobacco: Smoker, Current Status Unknown Sex and Gender Information Value Date Recorded Sex Assigned at Not on file Legal Sex Male 5:59 PM CDT Gender Identity Not on file Sexual Orientation Not on file documented as of this encounter Plan of Treatment Not on file documented as of this encounter Visit Diagnoses Not on filedocumented in this encounter Care Teams Groundman Relationship Specialty Start Date End Date Valdo Giang MD [address] [place] [address] PCP - General FAMILY PRACTICE 12/06/20 documented as of this encounter
--- OUTSIDE RECORDS SUMMARY | 2025-05-14 08:08 | XMS_ITS | Clinical Summary ---
Author Organization [facility] Address [address] Mckeonn: [place] [address] Care Team Providers Care Treating Engineer Name Role Phone Unavailable Primary Care Provider Unavailabl e Allergies Active Allergy Reactions Criticality Noted Date Comments Morphine Hypotension Medium 11/21/2014 Medications metoprolol succinate (TOPROL XL) 25 mg Extended Release 24 hour tablet Take 1 Tablet (25 mg) by mouth daily One month only must be seen. 30 Tablet 0 6 Active amLODIPine (NORVASC) 10 mg tablet Take 1 Tablet (10 mg) by mouth daily Needs in office appointment prior to next refill.. 30 Tablet 0 5 Active atorvastatin (LIPITOR) 80 mg tablet Take 1 Tab (80 mg) by mouth daily at bedtime. 30 Tablet 5 5 Active spironolactone (ALDACTONE) 25 mg tablet Take 0.5 Tabs by mouth 2 times daily. 30 Tablet 1 5 Active ALPRAZolam (XANAX) 0.25 mg tabletIndicatio ns:Anxiety Take 1 Tab (0.25 mg) by mouth 3 times daily as needed for Anxiety. 60 Tablet 0 5 Active nitroglycerin (NITROSTAT) 0.4 mg Tablet, Sublingual Place 1 Tab under tongue every 5 minutes as needed for Chest Pain (Not to exceed 3 doses, notify physician if chest pain not relieved, hold if systolic BP less than or equal to 90 mmHg). 20 Tablet 1 5 Active ticagrelor (BRILINTA) 90 mg TabletIndicatio ns:Sleep apnea,Anxiety,S leep pattern disturbance,Day time somnolence,Snor ing Take 1 Tab (90 mg) by mouth 2 times daily. 60 Tablet 5 5 Active ranolazine ER (RANEXA) 500 mg Extended Release 12 hour tabletIndicatio ns:Angina at rest,CAD (coronary artery disease) Take 1 Tab (500 mg) by mouth every 12 hours. 60 Tablet 3 5 Active lisinopriL (PRINIVIL) 10 mg tablet Take 1 Tab (10 mg) by mouth daily One time only must keep appointment. 30 Tablet 0 5 Active Active Problems Problem Noted Date Diagnosed Date WALTER (dyspnea on exertion) 11/29/2014 DCM (dilated cardiomyopathy) 11/29/2014 Chronic systolic CHF (conges tive heart failure), NYHA class 2 11/29/2014 S/P cardiac cath - Hypokinesis - EF - 35% 2014 Stress 08/07/2014 HTN (hypertension) 02/01/2014 Sleep apnea 01/18/2014 Anxiety 01/18/2014 Chronic low back pain 12/05/2013 Acute MO, inferior wall 12/03/2013 12/04/2013 S/P angioplasty with stent RCA 12/03/13 4 CAD (coronary artery disease) 12/04/2013 Tobacco abuse 12/04/2013 Resolved Problems Problem Noted Date Diagnosed Date Resolved Date Angina at rest 11/21/2014 11/29/2014 Chest pain with high risk fo r cardiac etiology 10/15/2014 11/29/2014 Unstable angina 12/04/2013 01/18/2014 Family History Medical History Relation Name Comments Healthy Brother Healthy Daughter Diabetes Father Heart Disease Father High Cholesterol Father Hypertension Father High Cholesterol Mother Healthy Sister Healthy Son Relation Name Status Comments Brother Alive Daughter Alive Father Mother Alive Sister Alive Son Alive Social History Tobacco Use Types Packs/Day Years Used Date Smoking Tobacco: Every Day Cigarettes Smokeless Tobacco: Never Comments:Quit smoking: smoki ng less since 12/03/2013 Alcohol Use Standard Drinks/Week Comments No 0 (1 standard drink = 0.6 oz pur e alcohol) Sex and Gender Information Value Date Recorded Sex Assigned at Not on file Legal Sex Male 2:05 AM HANDLE FINISHER Gender Identity Not on file Sexual Orientation Not on file Last Filed Vital Signs Vital Sign Reading Time Taken Comments Blood Pressure 133/84 11/29/2014 3:29 PM CDT left arm recheck Pulse 95 11/29/2014 2:54 PM CDT Temperature 36.5 C (97.7 F) 11/21/2014 1:15 PM HANDLE FINISHER Respiratory Rate 27 11/16/2014 1:15 PM HANDLE FINISHER Oxygen Saturation - - Inhaled Oxygen Concentration - - Weight 103 kg (227 lb) 11/29/2014 2:54 PM CDT Height 188 cm (6' 2) 11/29/2014 2:54 PM CDT Pt stated height Body Mass Index 29.15 11/29/2014 2:54 PM CDT Plan of Treatment Health Maintenance Due Date Last Done Comments DTAP/TDAP/TD VACCINES (1 - Tdap) 1991 HEPATITIS B VACCINES (1 of 3 - 19+ 3-dose series) 02/1991 COLORECTAL SCREENING 2017 Colorectal Cancer Screening 2017 FIT-DNA Q 3 years 2017 FIT/FOBT Q 1 year 2017 Flex Sig/CT Colonography Q 5 years 2017 ZOSTER VACCINE (1 of 2) 2022 INFLUENZA VACCINE (#1) 2025 Medical Devices Implanted Type Area Director Career Device Identifier Shelf Expiration Date Model / Serial / Lot Stent-12/03/2013 Implanted:12/03 by Josse Cee MD (Quantity not on file) Stent [employer] 06/19/2014 [employer] / / [id number] Stent-12/03/2013 Implanted:12/03 by Josse Cee MD (Quantity not on file) Stent [employer] 06/19/2014 [employer] / / [id number]
[2025-05-14 08:28] LABS: Estimated Glomerular Filt Rate > 60
== END 2025-05-14 08:04 | disposition home or self-care (01) ==
PROVIDERS: PCP Family Medicine; Visit Provider Specialist
DX: I71.21 Aneurysm of the ascending aorta, without rupture (principal); R91.1 Solitary pulmonary nodule
CPT/HCPCS: 71275; Q9967